=== PATIENT | female | born 1980 | race Asian ===

== ENCOUNTER → 2021-11-12 | Outpatient (CLI) | payer BC | LOC: MC.RAD 08:05 | DX: Z12.31 Encounter for screening mammogram for malignant neoplasm of breast (principal) ==

== ENCOUNTER → 2023-12-13 | Outpatient (CLI) | payer BC | LOC: MC.RAD 06:52 | DX: Z12.31 Encounter for screening mammogram for malignant neoplasm of breast (principal) ==